=== PATIENT | female | born 1975 | race Caucasian/White ===

== ENCOUNTER 2016-11-24 19:19 | Emergency (ER) | payer MEDICAID ==
[~2016-11-24] VITALS: Ht 157.5 cm; Wt 81.5 kg
[2016-11-24 19:24] VITALS: Ht 157.5 cm; Wt 81.5 kg
[2016-11-24] MEDS ORDERED: ASPIRIN 325 MG TAB PO STA (22:56)
[2016-11-24] MEDS ORDERED: LIDOCAINE/MYLANTA 40 ML BTL PO ONE (23:00)
[2016-11-24 23:42] LABS: ADD SCAN DIFF NO
[2016-11-24 23:48] LABS: BASOPHIL # 0.1 10^3/ul (0.0-0.1); BASOPHILS % 0.6 % (0.0-2.0); EOSINOPHILS # 0.2 10^3/ul (0.0-0.5); EOSINOPHILS % 2.4 % (0.0-7.0); HEMATOCRIT 33.6 % (37.0-47.0); HEMOGLOBIN 10.8 g/dl (12.0-16.0); LYMPHOCYTES # 3.6 10^3/ul (0.8-2.9); LYMPHOCYTES % 42.9 % (15.0-51.0); MEAN CORPUSCULAR HEMOGLOBIN 26.9 pg (29.0-33.0); MEAN CORPUSCULAR HGB CONC 32.1 g/dl (32.0-37.0); MEAN CORPUSCULAR VOLUME 83.6 fl (82.0-101.0); MEAN PLATELET VOLUME 9.2 fl (7.4-10.4); MONOCYTE # 0.8 10^3/ul (0.3-0.9); NEUTROPHIL # 3.8 10^3/ul (1.6-7.5); NEUTROPHILS % 44.9 % (39.0-77.0); PLATELET COUNT 327 10^3/UL (140-415); RED BLOOD COUNT 4.02 10^6/ul (4.20-5.40); RED CELL DISTRIBUTION WIDTH 14.6 % (11.5-14.5); WHITE BLOOD COUNT 8.5 10^3/ul (4.8-10.8)
--- NOTE | 2016-11-24 23:56 | RADRPT ---
PROCEDURE: XR, Chest. CLINICAL INDICATION: Chest pain. TECHNIQUE: AP chest COMPARISON: None available. FINDINGS: There is no acute infiltrate in the lungs. No pleural effusion. The heart is not enlarged. IMPRESSION: 1. Unremarkable chest x-ray. RPTAT: GG .Akil Caba MD, Date Time Electronically viewed and signed by .Akil Caba MD, MD on 11/24/2016 23:56 .Y/
[2016-11-24 23:58] LABS: INR 1.08; PT RATIO 1.1
[2016-11-25 00:21] LABS: ANION GAP 9 (8-16); BLOOD UREA NITROGEN 15 mg/dl (7-20); CALCIUM 8.3 mg/dl (8.4-10.2); CARBON DIOXIDE 24 mmol/L (21-31); CHLORIDE 107 mmol/L (97-110); CREATININE 0.51 mg/dl (0.44-1.00); GLUCOSE 105 mg/dl (70-220); POTASSIUM 3.7 mmol/L (3.5-5.1); SODIUM 136 mmol/L (135-144)
[2016-11-25 00:43] LABS: TROPONIN-I < 0.012 ng/ml (0.00-0.12)
[2016-11-25] MEDS ORDERED: RANI150T9 PO (00:51)
--- NOTE | 2016-11-25 00:56 | ERD ---
ER Documentation Chief Complaint Date/Time DATE: 11/25/16 TIME: 00:54 Chief Complaint right sided chest pain x 1 day HPI This 41-year-old female presents emergency room for right-sided chest pain is been present all day. She denies any shortness of breath. She also denies cough fever chills. She has no nausea or vomiting. This is never happened to her before. She does have hypertension but does not have any other medical conditions. The pain is been constant and described as an ache. Nothing makes it better or worse per ROS All systems reviewed and are negative except as per history of present illness. Medications Home Meds Active Scripts Ranitidine Hcl* (Zantac*) 150 Mg Tablet, 150 MG PO BID, #60 TAB Prov:ELIANE KERR DO 11/25/16 Allergies Allergies: Coded Allergies: No Known Drug Allergies (Verified Allergy, Unknown, 11/24/16) PMhx/Soc Medical and Surgical Hx: pt denies Surgical Hx History of Surgery: No Anesthesia Reaction: No Hx Neurological Disorder: No Hx Respiratory Disorders: No Hx Cardiac Disorders: Yes (htn) Hx Psychiatric Problems: No Hx Miscellaneous Medical Probl: No Hx Alcohol Use: No Hx Substance Use: No Hx Tobacco Use: No Smoking Status: Never smoker Physical Exam Vitals Vital Signs Date Time Temp Pulse Resp B/P Pulse Ox O2 Delivery O2 Flow Rate FiO2 11/24/16 19:24 98.9 85 20 116/70 98 Physical Exam Const: [] No distress Head: Atraumatic Eyes: Normal Conjunctiva ENT: Normal External Ears, Nose and Mouth. Neck: Full range of motion..~ No meningismus. Resp: Clear to auscultation bilaterally Cardio: Regular rate and rhythm, no murmurs Abd: Soft, non tender, non distended. Normal bowel sounds Skin: No petechiae or rashes Back: No midline or flank tenderness Ext: No cyanosis, or edema Neur: Awake and alert and oriented 3, no focal deficits Psych: Normal Mood and Affect Result Diagram: 11/24/16231411/24/162314 Results 24 hrs Laboratory Tests Test 11/24/16 23:15 White Blood Count 8.510^3/ul Red Blood Count 4.0210^6/ul Hemoglobin 10.8g/dl Hematocrit 33.6% Mean Corpuscular Volume 83.6fl Mean Corpuscular Hemoglobin 26.9pg Mean Corpuscular Hemoglobin Concent 32.1g/dl Red Cell Distribution Width 14.6% Platelet Count 77327^3/UL Mean Platelet Volume 9.2fl Neutrophils % 44.9% Lymphocytes % 42.9% Monocytes % 9.0% Eosinophils % 2.4% Basophils % 0.6% Nucleated Red Blood Cells % 0.0/100WBC Neutrophils # 3.810^3/ul Lymphocytes # 3.610^3/ul Monocytes # 0.810^3/ul Eosinophils # 0.210^3/ul Basophils # 0.110^3/ul Nucleated Red Blood Cells # 0.010^3/ul Prothrombin Time 14.0Sec Prothrombin Time Ratio 1.1 INR International Normalized Ratio 1.08 Activated Partial Thromboplast Time 30.0Sec Sodium Level 136mmol/L Potassium Level 3.7mmol/L Chloride Level 107mmol/L Carbon Dioxide Level 24mmol/L Anion Gap 9 Blood Urea Nitrogen 15mg/dl Creatinine 0.51mg/dl Glucose Level 105mg/dl Calcium Level 8.3mg/dl Troponin I < 0.012ng/ml Current Medications Medications (Trade) Dose Ordered Sig/Tonny Route PRN Reason Start Time Stop Time Status Last Admin Dose Admin Aspirin (Aspirin) 325 mg ONCE STAT PO 11/24/16 22:56 11/24/16 22:59 DC 11/25/16 00:01 Miscellaneous Medication (Gi Cocktail (2)) 40 ml ONCE ONCE PO 11/24/16 23:00 11/24/16 23:01 DC 11/25/16 00:01 Procedures/MDM Atypical chest pain with negative cardiac workup for ischemia. Patient was given 3 and 25 mg aspirin. She was then given a GI cocktail which she said removed her pain completely. This is not definitive for but does provide evidence for possible reflux or gastritis causing the patient's pain. Going to discharge her with Zantac. I am also going to discharge with primary care follow-up instructions to obtain an echocardiogram as well. EKG interpretation: Normal sinus rhythm rate of 77, normal axis, normal intervals, no ST or T-wave changes concerning for acute ischemia edger automatic interpretation: Normal sinus rhythm without arrhythmia Chest x-ray interpretation: I see no acute process. I see no widened mediastinum, no pulmonary edema, no infiltrate, no pneumothorax, no fractures Departure Diagnosis: Primary Impression: Chest pain Additional Impression: GERD (gastroesophageal reflux disease) Condition: Stable Patient Instructions: Chest Pain, Uncertain Cause, Gerd (Adult) Referrals: [facility] YOU HAVE RECEIVED A MEDICAL SCREENING EXAM AND THE RESULTS INDICATE THAT YOU DO NOT HAVE A CONDITION THAT REQUIRES URGENT TREATMENT IN THE EMERGENCY DEPARTMENT. FURTHER EVALUATION AND TREATMENT OF YOUR CONDITION CAN WAIT UNTIL YOU ARE SEEN IN YOUR DOCTORS OFFICE WITHIN THE NEXT 1-2 DAYS. IT IS YOUR RESPONSIBILITY TO MAKE AN APPOINTMENT FOR FOLOW-UP CARE. IF YOU HAVE A PRIMARY DOCTOR --you should call your primary doctor and schedule an appointment IF YOU DO NOT HAVE A PRIMARY DOCTOR YOU CAN CALL OUR PHYSICIAN REFERRAL HOTLINE AT IF YOU CAN NOT AFFORD TO SEE A PHYSICIAN YOU CAN CHOSE FROM THE FOLLOWING [facility] [address] [facility] [address] [facility] [address] [facility] [address] [facility] [address] [facility]. [facility] [address] Additional Instructions: Llame al doctor MAANA y raimundo cooper ERMELINDA PARA DENTRO DE 2-3 JIMÉNEZ. Consigue cooper ermelinda para un ECHOCARDIOGRAMA. Dgale a la secretaria que nosotros le instruimos hacer esta ermelinda.Avise o llame si joseph condicin se empeora antes de la ermelinda. Regresa aqui si peor o no mejor. ELIANE KERR DO Nov 25, 2016 00:56
[2016-11-25 01:06] VITALS: BP 120/71; PULSE 74; RESP 20; TEMP 98.9
== END 2016-11-25 01:08 | disposition home or self-care (01) ==
LOC: E/R 19:19
DX: R07.9 Chest pain, unspecified (principal); K21.9 Gastro-esophageal reflux disease without esophagitis; I10 Essential (primary) hypertension
CPT/HCPCS: 36415; 71010; 80048; 84484; 85025; 85610; 85730; 93005; Z7502; Z7610